=== PATIENT | female | born 1985 | race Caucasian/White ===

== ENCOUNTER → 2016-12-12 | Outpatient (CLI) | payer MEDICAID ==
[~2016-12-12] MED LIST: CEPH-507 PO; ONDA4SOL2 PO; PREN-51 PO
[2016-12-12 11:07] VITALS: BP 105/75
--- NOTE | 2016-12-12 11:07 | Urgent Care T Sheet Gen (E) ---
Intake General Temperature (Fahrenheit): 98.0 Pulse: 88 Blood Pressure Systolic: 105 Blood Pressure Diastolic: 75 Respirations: 16 SPO2: 96 Description of Symptoms Patient presents with probable infection to both middle fingers. Patient thinks she cut both middle finger nails too short. Noticed redness, drainage and swelling last week. Has been soaking the fingers in Epsom salt and water however that burned. Now has been soaking in warm soapy water and covering area with triple antibiotic ointment. No fever. Patient is currently . States the fingers are very sore and she bumps them constantly. History of Present Illness Allergies: Coded Allergies: No Known Drug Allergies (Unverified , 06/03/16) Home Meds Active Scripts Cephalexin (Keflex)500 Mg [id number] Mg PO QID Infection #28 CAP Ref 0 Prov:NEPTALI DALTON 12/12/16 Reported Medications Vit #76/Iron,Carb/Fa (Prenatabs RX Tablet)1 Each Tablet1 Each PO DAILY 06/03/16 Respiratory Constitutional Symptoms: No syptoms reported EENTM: No symptoms reported Respiratory: No symptoms reported Cardiovascular: No symptoms reported Estimated Date of Delivery: 10/16/16 Skin: Change in color Lesions All Other Systems Reviewed Remaining Systems: All other systems reviewed with negative findings Past Cjcfyia-Hufkck-Ybkybj Hx Patient's Social History Alcohol Use: Denies Use Smoking Status: Never smoker Recent foreign travel: No Reproductive System : 2 Abortions: 0 Living Children: 1 HIV/AIDS: Unknown Physical Exam Physical Exam General Appearance: WD/WN No apparent distress Skin Exam: Other (paronychia noted on bilateral middle fingers. skin is red and swollen. drainage is noted along the lateral edges of both fingers. very tender. rest of the fingers are normal.) Extremity Exam: Normal capillary refill Departure Urgent Care Impression Impression: Primary Impression: Paronychia of finger Qualified Code: L03.019 - Cellulitis of unspecified finger Departure Disposition: 01 HOME OR SELF-CARE Condition: Stable Referrals: ISIDRA CHRISTIAN MD (PCP) Additional Instructions: I have started the patient on Keflex for treatment of her bilateral paronychia. Suggested she continue to soak in warm soapy water and cover with Triple Antibiotic Ointment Ibuprofen as needed for pain Return if no better Patient understands DC instructions. All questions were answered. Scripts Cephalexin (Keflex)500 Mg [id number] Mg PO QID Infection #28 CAP Ref 0 Prov:NEPTALI DALTON 12/12/16 End of report . NEPTALI DALTON December 12, 2016 10:31
== END ==
LOC: MHUC 10:14
PROVIDERS: ATTEND Physician Assistant
DX: L03.011 Cellulitis of right finger (principal); L03.012 Cellulitis of left finger
CPT/HCPCS: 99212